=== PATIENT | female | born 1985 | race American Indian/Alaskan Native ===

== ENCOUNTER 2016-09-20 21:42 | Inpatient (IN) | payer OTHER ==
[2016-09-21] MEDS ORDERED: LACTATED RINGERS 1,000 ML ONE ×2 (00:41)
[2016-09-21] MEDS ORDERED: SUBLIMAZE IV ONE (01:09)
[2016-09-21 01:30] LABS: Hematocrit 30.3 % (30.3-42.9); Hemoglobin 10.2 gm/dl (10.1-14.3); Mean Corpuscular HGB Conc 34 % (30-34); Mean Corpuscular Hemoglobin 28 pg (28-32); Mean Corpuscular Volume 84 fl (79-97); Platelet Count 270 K/mm3 (140-440); Red Blood Count 3.59 M/mm3 (3.65-5.03); Red Cell Distribution Width 15.9 % (13.2-15.2); White Blood Count 10.8 K/mm3 (4.5-11.0)
[2016-09-21] MEDS ORDERED: LACTATED RINGERS 1,000 ML IV SCH ×2 (02:00→07:00)
[2016-09-21] MEDS ORDERED: fentaNYL-BUPIV 2 MCG/ML-0.125% 200 MCG/100 ML BAG EPIDURAL ONE (02:26)
[2016-09-21] MEDS ORDERED: ePHEDrine SULFATE ONE (02:30)
[2016-09-21] MEDS ORDERED: PITOCin/NS 20 UNIT/1000ML DRIP 20,000 MILLIUNITS/1,000 ML BAG IV ONE (02:42)
[2016-09-21] MEDS ORDERED: ePHEDrine SULFATE IV PRN ×2 (02:45→06:51)
[2016-09-21] MEDS ORDERED: NARCAN 2 MG/2 ML IV PRN (02:45)
--- NOTE | 2016-09-21 02:45 | Anesthesia Consultation ---
Anesthesia Consult and Med Hx Date of service: 09/21/16 - Airway Anesthetic Teeth Evaluation: Good ROM Head & Neck: Adequate Mental/Hyoid Distance: Adequate Intubation Access Assessment: Probably Good - Pre-Operative Health Status ASA Pre-Surgery Classification: ASA2, Emergency Proposed Anesthetic Plan: Epidural, Spinal - Pulmonary Hx Asthma: No COPD: No Hx Pneumonia: No - Cardiovascular System Hx Hypertension: No - Central Nervous System Hx Psychiatric Problems: No - Endocrine Hx Renal Disease: No Hx End Stage Renal Disease: No Hx Hypothyroidism: No Hx Hyperthyroidism: No - Other Systems Hx Alcohol Use: No
[2016-09-21] MEDS ORDERED: fentaNYL-BUPIV 2 MCG/ML-0.125% 200 MCG/100 ML BAG EPIDURAL SCH (03:00)
[2016-09-21] MEDS ORDERED: BRETHINE SUB-Q PRN (06:51)
[2016-09-21] MEDS ORDERED: XYLOCAINE 2% INFILTRATI ONE (06:51)
[2016-09-21] MEDS ORDERED: MINERAL OIL PO PRN (06:51)
--- NOTE | 2016-09-21 06:58 | History and Physical Report ---
History of Present Illness Date of examination: 09/21/16 Date of admission: 09/21/16 00:31 Chief complaint: contractions History of present illness: 31y/o @ 39+2 weeks presents in active labor with advanced cervical dilation. She denies leakage of fluid. care initiated at 8 weeks ega. The patient has a history of hemorrhage. GBS negative Past History Past Medical History: no pertinent history Past Surgical History: D&C Social history: - Obstetrical History Expected Date of Delivery: 09/26/16 Actual Gestation: 39 Week(s) 2 Day(s) : 6 Para: 2 Hx # Term Pregnancies: 2 Number of Pregnancies: 0 Spontaneous Abortions: 0 Induced : 3 Number of Living Children: 2 Medications and Allergies Allergies Allergy/AdvReac Type Severity Reaction Status Date / Time naproxen AdvReac Rash Verified 09/20/16 23:45 Active Meds: Active Medications Lactated Ringer's (Lactated Ringers) 1,000 mls @ 125 mls/hr IV DIRECT GINA Last Admin: 09/21/16 02:43 Dose: 125 mls/hr Fentanyl/Bupivacaine/Sodium Chlor (Fentanyl-Bupiv 2 Mcg/Ml-0.125%) 200 mcg in 100 mls @ 12 mls/hr EPIDURAL TITR GINA PRN Reason: Protocol Review of Systems All systems: negative Genitourinary: contractions, no leakage of fluid - Vital Signs Vital signs: Vital Signs Pulse BP 84 100/58 09/20/16 22:26 09/20/16 22:26 Temp Pulse Resp BP Pulse Ox 97.1 F L 90 18 100/58 99 09/21/16 01:00 09/21/16 06:49 09/21/16 02:35 09/21/16 06:49 09/21/16 06:48 - Physical Exam Breasts: Positive: deferred Cardiovascular: Regular rate Lungs: Positive: Clear to auscultation Abdomen: Positive: normal appearance - Obstetrical FHR: category 1 Uterine Contraction Monitor Mode: External Results Result Diagrams: 09/21/16 00:40 Abnormal lab results 09/21/16 Range/Units 00:40 RBC 3.59 L (3.65-5.03) M/mm3 RDW 15.9 H (13.2-15.2) % All other labs normal. Assessment and Plan - Patient Problems (1) Active labor at term Current Visit: Yes Status: Acute Plan to address problem: admit to L&D
[2016-09-21] MEDS ORDERED: PITOCin/NS 20 UNIT/1000ML DRIP 20 UNITS/1,000 ML BAG IV SCH (07:00)
[2016-09-21] MEDS: PITOCin/NS 30 UNIT/500ML 30 UNITS/500 ML BAG IV SCH ×3 (07:32→09:41)
--- NOTE | 2016-09-21 09:57 | Event Note ---
Date: 09/21/16 Comfortable with epidural O: Category 2, minimal variability UC: 1-1.5 x 60-90, Pitocin @ 8mu SVE: /-1 A: Transitional Labor P: Continue active berhane/t
--- NOTE | 2016-09-21 12:26 | Procedure Note ---
OB Delivery Note - Delivery Date of Delivery: 09/21/16 (7-10oz male 6/ # 1205) Surgeon: GISELA DIXON Estimated blood loss: 100cc - Vaginal Delivery presentation: vertex Delivery position: OA Delivery augmentation: pitocin Delivery monitor: external FHT, external uterine Route of delivery: Delivery placenta: spontaneous Delivery cord: 3 umbilical vessels Episiotomy: none Delivery laceration: none Anesthesia: epidural - A at 1 minute: 8 at 5 minutes: 9 Gender: Male ( viable male, bulb suctioned, stimulated to cry and placed skin to skin. Apgars 8/9. Spont. placenta, Pitocin infusing, bleeding scant. FF 2 below, U, ML. No lacerations)
[2016-09-21] MEDS ORDERED: BENADRYL PO PRN (12:27)
[2016-09-21] MEDS ORDERED: LANSINOH TP PRN (12:27)
[2016-09-21] MEDS ORDERED: MILK OF MAGNESIA PO PRN (12:27)
[2016-09-21] MEDS ORDERED: TUCKS PAD TP PRN (12:27)
[2016-09-21] MEDS ORDERED: PHENERGAN PO PRN (12:27)
[2016-09-21] MEDS ORDERED: DULCOLAX PR PRN (12:27)
[2016-09-21] MEDS ORDERED: TYLENOL PO PRN (12:27)
[2016-09-21] MEDS ORDERED: PHENERGAN PR PRN (12:27)
[2016-09-21] MEDS ORDERED: ZOFRAN IV PRN (12:27)
[2016-09-21] MEDS ORDERED: SODIUM CHLORIDE FLUSH SYRINGE 10 ML IV NR (13:00)
[2016-09-21] MEDS: MOTRIN PO SCH (18:59)
[2016-09-21] MEDS: FEOSOL PO SCH (22:25)
[2016-09-22] MEDS: MOTRIN PO SCH ×4 (00:34→23:47)
[2016-09-22 01:13] LABS: Hematocrit 27.1 % (30.3-42.9)
[2016-09-22] MEDS: NORCO 5/325 PO PRN ×2 (04:59→21:45)
[2016-09-22] MEDS ORDERED: M-M-R II VACCINE SUB-Q ONE (06:00)
[2016-09-22] MEDS ORDERED: BOOSTRIX IM ONE (06:00)
[2016-09-22] MEDS: FEOSOL PO SCH ×2 (13:15→21:45)
[2016-09-22] MEDS: PRENATAL VITAMIN PO SCH (13:15)
--- NOTE | 2016-09-22 16:04 | Discharge Summary ---
Providers - Providers Date of Admission: 09/21/16 00:31 Date of discharge: 09/23/16 Attending physician: KLAUDIA DOMÍNGUEZ Primary care physician: KLAUDIA DOMÍNGUEZ Hospitalization Reason for admission: active labor, IUP at term Delivery: Episiotomy: none Other procedures: none Discharge diagnosis: IUP at term delivered [place] baby: male Condition at discharge: Good Disposition: DISCHARGED TO HOME OR SELFCARE Plan - Discharge Medications Prescriptions: Docusate Sodium [Colace] 100 mg PO BID PRN #60 capsule PRN Reason: constipation Ferrous Sulfate [Feosol 325 MG tab] 325 mg PO BID #60 tablet HYDROcodone/APAP 5-325 [[place] 5/325] 1 each PO Q4HR PRN #30 tablet PRN Reason: Pain Ibuprofen [Motrin 600 MG tab] 600 mg PO Q6H #30 tablet - Provider Discharge Summary Activity: routine, no sex for 6 weeks, no heavy lifting 4 weeks, no strenuous exercise Diet: routine Instructions: routine Additional instructions: [] Smoking cessation referral if applicable(refer to patient education folder for contact #) [] Refer to [facility]'s [facility] Booklet Call your doctor immediately for: * Fever > 100.5 * Heavy vaginal bleeding ( >1 pad per hour) * Severe persistent headache * Shortness of breath * Reddened, hot, painful area to leg or breast * Drainage or odor from incision. * Keep incision clean and dry at all times and follow doctor's instructions regarding bathing/showering - Follow up plan Follow up: KLAUDIA DOMÍNGUEZ MD [Primary Care Provider] - GISELA DIXON CNM [Advanced Practice Nurse] - (RTO 4 weeks . Call office to schedule infant circumcision.)
[2016-09-23] MEDS: MOTRIN PO SCH ×2 (05:25→12:00)
[2016-09-23] MEDS: FEOSOL PO SCH (10:47)
[2016-09-23] MEDS: PRENATAL VITAMIN PO SCH (10:47)
[2016-09-23 13:05] VITALS: BP 113/63
== END 2016-09-23 13:45 | disposition home or self-care (01) | DRG 775 ==
LOC: TRG 21:42 → LD 09-21 00:31 → TRG 09-21 00:31 → OB 09-21 15:32
PROVIDERS: ADMIT Obstetrics & Gynecology; ATTEND Obstetrics & Gynecology
PROC: 10E0XZZ Delivery of Products of Conception, External Approach (ICD-10-PCS; principal; 2016-09-21)
PROC: 00HU33Z Insertion of Infusion Device into Spinal Canal, Percutaneous Approach (ICD-10-PCS; 2016-09-21)
PROC: 3E0R3CZ (ICD-10-PCS; 2016-09-21)
DX: O80 Encounter for full-term uncomplicated delivery (principal)
CPT/HCPCS: 36415; 85014; 85018; 85027; 86850; 86900; 86901; A6250; J2590; J3010; J7120